=== PATIENT | male | born 1945 | race Caucasian/White ===

== ENCOUNTER → 2018-08-03 | Outpatient (CLI) | payer OTHER, BC ==
--- NOTE | 2018-08-03 08:07 | EKG ---
[address] [place] [address] ELECTROCARDIOGRAM REPORT Name: DALTON LEWIS Room #: REG CLI Nilson#: [id number] ������������������ Admission: 08/03/18 ������������������ Attend Phys: Pj Clay MD Discharge: ������������������ Date of : 49 Report #: [id number] ����������������������������������������������������������������� [id number] THIS REPORT FOR: //name// [facility] Test Date: 2018-08-03 Test Time: 06:57:47 Pat Name: DALTON LEWIS Department: Room: Gender: M Credit Officer: : 1945 Requested By: Pj Clay Order Number: [id number] MD: Regulo Singleton Measurements Intervals [place] Rate: 73 P: 25 MO: 137 QRS: -47 QRSD: 97 T: -4 QT: 394 QTc: 435 Interpretive Statements Sinus rhythm Left anterior fascicular block Abnormal R-wave progression, late transition Left ventricular hypertrophy Baseline wander in lead(s) III No previous ECG available for comparison Electronically Signed On 08-03-2018 8:06:54 CDT by Regulo Singleton [email or web address] ��������������������������������������������� <ELECTRONICALLY SIGNED> ���������������������������������������� By: Regulo Singleton MD ��������������������������������������������� 08/03/18 [id number] Regulo Singleton MD /PRANAV
== END | disposition home or self-care (01) ==
LOC: LITH 06:17
DX: N20.0 Calculus of kidney (principal); E78.00 Pure hypercholesterolemia, unspecified; Z98.890 Other specified postprocedural states; Z79.899 Other long term (current) drug therapy; Z79.82 Long term (current) use of aspirin